=== PATIENT | male | born 1950 | race Caucasian/White ===

== ENCOUNTER 2017-11-19 16:45 | Observation (INO) | payer OTHER ==
--- NOTE | 2017-11-19 18:04 | RAD REPORT ---
EXAM DESCRIPTION: RAD - Chest Pa And Lat (2 Views) - 11/19/2017 5:41 pm CLINICAL HISTORY: Cough and congestion COMPARISON: Portable chest July 2017, CT chest May 2016 TECHNIQUE: PA and lateral views of the chest were obtained. FINDINGS: The lungs are normal volume. Patient has underlying COPD change. There is extensive fibrot ic change in the lung marti with flattened diaphragm and increased retrosternal space. Bilateral par tially mineralized apical masses are present stable to at least May 2016. These are not regarde d as acutely significant. Focally prominent interstitial and alveolar opacities are present in the anterior right lung base. Th kelle changes are new from prior imaging. Right middle lobe pneumonia is suspected. Correlation is need ed with any acute clinical findings. Heart size is normal and central vasculature is within normal limits. No pleural effusion or pneumot horax seen. No acute bony finding noted. No aortic abnormality. IMPRESSION: Patchy pneumonia changes are present in the anterior right lung base. Findings are super imposed on chronic pleural and parenchymal changes.
[2017-11-19] MEDS ORDERED: ALBUTEROL 2.5 MG/3 ML NEB SOL ONE (19:39)
[2017-11-19] MEDS ORDERED: IPRATROPIUM BROM 0.5MG/2.5ML ONE (19:40)
[2017-11-19 19:59] LABS: Absolute Lymphocytes (CBC) 2.1 K/uL (0.7-4.9); Absolute Monocytes 1.5 K/uL (0.1-1.3); Basophils % 0.8 % (0-1.3); Hematocrit 37.7 % (39.6-49.0); Lymphocytes % 16.4 % (15.3-44.8); MCH 29.9 pg (27.0-35.0); MCV 88.4 fL (80-100); MPV 8.5 fL (7.6-11.3); Monocytes % 11.5 % (3.3-12.3); RBC Red Blood Cell Count 4.26 M/uL (4.33-5.43)
[2017-11-19 20:10] LABS: Protime INR 1.21
[2017-11-19 20:12] LABS: Potassium 3.9 mEq/L (3.6-5.0)
[2017-11-19 20:19] LABS: Albumin 4.1 g/dL (3.2-5.5); Bilirubin Direct 0.2 mg/dL (0-0.2); Bilirubin Total 0.8 mg/dL (0.3-1.2); Magnesium 1.8 mg/dL (1.8-2.5); Protein, Total 7.3 g/dL (6.0-8.3)
[2017-11-19 20:22] LABS: CKMB Creatine Kinase MB 1.5 ng/ml (0.3-4.0)
[2017-11-19] MEDS ORDERED: CEFTRIAXONE/SWI 1gm 1 GM/10 ML SYR ONE (20:33)
[2017-11-19] MEDS ORDERED: AZITHROMYCIN 500 MG/250 ML BAG ONE (20:33)
--- NOTE | 2017-11-19 20:46 | RAD REPORT ---
EXAM DESCRIPTION: CT - Chest For Pe Angio - 11/19/2017 8:37 pm CLINICAL HISTORY: Chest pain, shortness of breath, COPD history COMPARISON: Chest film same date, PE study May 2016 TECHNIQUE: Dynamically enhanced 3 mm thick images of the chest were obtained during administration o f approximately 150mL Isovue 370 IV contrast. Coronal and oblique reconstruction images were generate d and reviewed. Exam utilizes a protocol to evaluate the pulmonary arterial tree. All CT scans are performed using dose optimization technique as appropriate and may include automated exposure control or mA/KV adjustment according to patient size. FINDINGS: No pulmonary emboli are identified. The aorta as imaged shows no acute or suspicious finding. No pericardial thickening or effusion. Right middle lobe airspace opacification is present at the anterior base. This is most likely a right middle lobe pneumonia. Appearance is not typical for malignant process. No other acute infiltrate or acute mass lesion. Bilateral apical masses with partial mineralization are not significantly differe nt from the 2016 study. No pleural effusion or pleural thickening. A few small calcified pleural plaq ues are present. No mediastinal or hilar suspicious masses. No chest wall masses or abnormal axillary lymphadenopathy. Asymmetry of the pectoralis musculature is noted. This is believed to be the affects of the patient' s left arm along his side than the right arm above his head. Mass or hematoma of the pectoralis muscu lature is unlikely. IMPRESSION: No pulmonary emboli identified. Right middle lobe pneumonia at the anterior base. 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
--- NOTE | 2017-11-19 21:13 | ER ---
Nurse's Notes [facility] Name: Diego Ortega Age: 67 yrs Sex: Male : 1950 Arrival Date: 11/19/2017 Time: 16:50 Bed 24 Private MD: Diagnosis: Bacterial pneumonia, not elsewhere classified Presentation: 11/19 16:54 Presenting complaint: Patient states: galina been sick for 2 weeks now, cough with phlegm, hj last night told me i was gasping for air at sleep, reports night sweats; denies fever; hx of COPD;. Transition of care: patient was not received from another setting of care. Onset of symptoms was November 19, 2017. Care prior to arrival: None. 16:54 Method Of Arrival: Ambulatory hj 16:54 Acuity: YAJAIRA 3 hj Triage Assessment: 16:58 General: Appears in no apparent distress. uncomfortable, Behavior is calm, cooperative, hj appropriate for age. Pain: Complains of pain in chest. Cardiovascular: Capillary refill < 3 seconds Patient's skin is warm and dry. Historical: - Allergies: 16:58 No Known Allergies; hj - Home Meds: 16:58 amlodipine oral [Active]; Aspirin Oral once daily [Active]; lisinopril 20 mg Oral tab hj [Active]; Plavix 75 mg Oral tab 1 tab once daily [Active]; lisinopril Oral [Active]; - PMHx: 16:58 Atrial Fib; Cirrhosis; Hepatitis; hj - Immunization history:: Adult Immunizations up to date. - Social history:: Smoking status: Patient/guardian denies using tobacco, the patient reports quitting approximately 2 years ago. - Family history:: not pertinent. - Hospitalizations: : No recent hospitalization is reported. - History obtained from: . Screenin:27 Abuse screen: Denies threats or abuse. Nutritional screening: No deficits noted. tl3 Tuberculosis screening: No symptoms or risk factors identified. Fall Risk None identified. Assessment: 16:58 Pain: Pain does not radiate. Pain began 1 day ago. hj 17:27 General: Appears in no apparent distress. slender, well groomed, well developed, well tl3 nourished, Behavior is calm, cooperative, appropriate for age. 18:29 Reassessment: Patient appears in no apparent distress at this time. No changes from tl3 previously documented assessment. Patient and/or family updated on plan of care and expected duration. Pain level reassessed. Patient is alert, oriented x 3, equal unlabored respirations, skin warm/dry/pink. family at bedside. 19:30 Reassessment: Patient appears in no apparent distress at this time. No changes from tl3 previously documented assessment. Patient and/or family updated on plan of care and expected duration. Pain level reassessed. Patient is alert, oriented x 3, equal unlabored respirations, skin warm/dry/pink. 20:15 Reassessment: Patient appears in no apparent distress at this time. No changes from tl3 previously documented assessment. Patient and/or family updated on plan of care and expected duration. Pain level reassessed. Patient is alert, oriented x 3, equal unlabored respirations, skin warm/dry/pink. 21:30 Reassessment: Patient appears in no apparent distress at this time. No changes from tl3 previously documented assessment. Patient and/or family updated on plan of care and expected duration. Pain level reassessed. Patient is alert, oriented x 3, equal unlabored respirations, skin warm/dry/pink. 21:30 Reassessment: Patient appears in no apparent distress at this time. No changes from tl3 previously documented assessment. Patient and/or family updated on plan of care and expected duration. Pain level reassessed. Patient is alert, oriented x 3, equal unlabored respirations, skin warm/dry/pink. awaiting bed asssignment. Vital Signs: 16:59 BP 154 / 78; Pulse 71; Resp 20; Temp 98.2(TE); Pulse Ox 98% on R/A; Weight 81.65 kg; Height 6 ft. 6 in. (198.12 cm); 17:27 BP 130 / 72; Pulse 63; Resp 18; Pulse Ox 99% ; tl3 18:29 Pulse 60; Resp 16; Pulse Ox 100% ; tl3 23:00 BP 109 / 61; Pulse 73; Resp 18; Pulse Ox 98% ; tl3 16:59 Body Mass Index 20.80 (81.65 kg, 198.12 cm) ED Course: 16:50 Patient arrived in ED. rg4 16:56 Triage completed. 16:58 Arm band placed on right wrist. 16:59 sander machine on. Pulse ox on. NIBP on. hj 16:59 Patient maintains SpO2 saturation greater than 95% on room air. hj 17:00 Sena Caraballo, LUÍS is Primary Nurse. tl3 17:02 Latisha Jaeger FNP is PHCP. kav 17:02 Bernabe Zapata MD is Attending Physician. kav 17:27 Patient moved to radiology. tl3 17:27 Patient has correct armband on for positive identification. Placed in gown. Bed in low tl3 position. Call light in reach. Side rails up X 1. Adult w/ patient. sander machine on. Pulse ox on. NIBP on. 17:27 No provider procedures requiring assistance completed. X-ray(s) taken. tl3 17:36 X-ray completed. Patient tolerated procedure well. Patient moved back from radiology. bb2 18:02 EKG done, by body and frame technician. reviewed by Bernabe Zapata MD. tc 18:29 sander machine on. Pulse ox on. NIBP on. tl3 18:29 Missed attempt(s): 22 gauge wrist. by tech. Bleeding controlled, band aid applied, tl3 catheter tip intact. 20:09 Inserted saline lock: 18 gauge in left antecubital area, using aseptic technique. Blood tl3 collected. 20:11 Missed attempt(s): 18 gauge in right antecubital area. Bleeding controlled, band aid bb applied, catheter tip intact. 21:03 Amylase, Serum Sent. tl3 21:03 Blood Culture Adult (2) Sent. tl3 21:03 XRAY Chest Pa And Lat (2 Views) Sent. tl3 21:03 BMP Sent. tl3 21:03 BNP Sent. tl3 21:03 CBC with Diff Sent. tl3 21:04 CPK Sent. tl3 21:04 Ckmb Sent. tl3 21:04 D-Dimer Sent. tl3 21:04 Hepatic Function Sent. tl3 21:04 Lipase Sent. tl3 21:04 Magnesium Sent. tl3 21:04 PT-INR Sent. tl3 21:04 Ptt, Activated Sent. tl3 21:04 Troponin (emerg Dept Use Only) Sent. tl3 21:10 Bernabe Zapata MD is Hospitalizing Provider. kav 21:10 Hospitalizing Provider role handed off by Bernabe Zapata MD kav 21:10 Greta Matos MD is Hospitalizing Provider. kav 22:06 CT Chest For PE Angio Sent. tl3 23:00 No apparent distress. tl3 23:00 Patient admitted, IV remains in place. tl3 23:39 Urine Dipstick--Ancillary (enter results) Sent. tl3 Administered Medications: 20:10 Drug: DuoNeb (3:1) (2.5 mg - 0.5 mg) 3 ml Route: Nebulizer; tl3 23:01 Follow up: Response: No adverse reaction tl3 20:32 Drug: Rocephin - (cefTRIAXone) 1 grams Route: IVPB; Infused Over: 5 mins; Site: left tl3 antecubital; 20:37 Follow up: IV Status: Completed infusion; IV Intake: 20ml tl3 23:01 Follow up: Response: No adverse reaction tl3 21:00 Drug: AZITHromycin 500 mg Route: IVPB; Infused Over: 1 hrs; Site: left antecubital; tl3 Delivery: Primary tubing; 22:06 Follow up: IV Status: Completed infusion; IV Intake: 250ml tl3 Intake: 20:37 IV: 20ml; Total: 20ml. tl3 22:06 IV: 250ml; Total: 270ml. tl3 Outcome: 21:12 Decision to Hospitalize by Provider. ka 23:00 Admitted to Med/surg accompanied by tech, via wheelchair, with chart, Report called to tl3 LUÍS Toney 23:00 Condition: stable 23:00 Discharge instructions given to 23:41 Patient left the ED. tl3 Signatures: Latisha Jaeger, SOIL SORT WORKER SOIL SORT WORKER Patricia Churchill RN Nancy Camacho, historic interpreter EKG Ttc Masood Dotson RN RN hj Garcia, Rubi 4 Tessa Campbell bbSena Bourgeois RN RN tl3
--- NOTE | 2017-11-19 21:13 | EDPHYS ---
Physician Documentation [facility] Name: Diego Ortega Age: 67 yrs Sex: Male : 1950 Arrival Date: 11/19/2017 Time: 16:50 Bed 24 Private MD: ED Physician Bernabe Zapata HPI: 11/19 18:40 This 67 yrs old Male presents to ER via Ambulatory with complaints of Chest kav Pain, Breathing Difficulty, Congestion. 20:31 This 67 yrs old Male presents to ER via Ambulatory with complaints of Chest kav Pain, Breathing Difficulty, Congestion. 18:40 Modifying factors: The patient symptoms are alleviated by nothing, the patient symptoms kav are aggravated by coughing. pmhx: copd. 18:42 The patient has shortness of breath at rest, with light activity. Duration: The kav symptoms are continuous. Associated signs and symptoms: Pertinent positives: productive cough. Severity of symptoms: At their worst the symptoms were moderate just prior to arrival. 19:34 The patient's shortness of breath is aggravated by coughing, is alleviated by nothing. kav The patient has not experienced similar symptoms in the past. The patient has not recently seen a physician. 19:35 Onset: The symptoms/episode began/occurred acutely, 2 week(s) ago, and became worse kav just prior to arrival, 2 day(s) ago. pmhx: copd. former smoker. quit smoking approximately 2 years ago. productive cough with rust-colored sputum. pt reports dark urine. AFib. Pacemaker. no reported pcp. 20:31 Associated signs and symptoms: Pertinent positives: chest pain, productive cough, fever.kav 20:31 c/o chest pain on deep inspiration. kav Historical: - Allergies: 16:58 No Known Allergies; hj - Home Meds: 16:58 amlodipine oral [Active]; Aspirin Oral once daily [Active]; lisinopril 20 mg Oral tab hj [Active]; Plavix 75 mg Oral tab 1 tab once daily [Active]; lisinopril Oral [Active]; - PMHx: 16:58 Atrial Fib; Cirrhosis; Hepatitis; hj - Immunization history:: Adult Immunizations up to date. - Social history:: Smoking status: Patient/guardian denies using tobacco, the patient reports quitting approximately 2 years ago. - Family history:: not pertinent. - Hospitalizations: : No recent hospitalization is reported. - History obtained from: . ROS: 18:43 Constitutional: Negative for fever, chills, and weight loss, Eyes: Negative for injury, kav pain, redness, and discharge, ENT: Negative for injury, pain, and discharge, Neck: Negative for injury, pain, and swelling, Cardiovascular: Negative for chest pain, palpitations, and edema, Abdomen/GI: Negative for abdominal pain, nausea, vomiting, diarrhea, and constipation, Back: Negative for injury and pain, : Negative for injury, bleeding, discharge, and swelling, MS/Extremity: Negative for injury and deformity, Skin: Negative for injury, rash, and discoloration, Neuro: Negative for headache, weakness, numbness, tingling, and seizure, Psych: Negative for depression, anxiety, suicide ideation, homicidal ideation, and hallucinations, Allergy/Immunology: Negative for hives, rash, and allergies, Endocrine: Negative for neck swelling, polydipsia, polyuria, polyphagia, and marked weight changes, Hematologic/Lymphatic: Negative for swollen nodes, abnormal bleeding, and unusual bruising. 19:37 Respiratory: Positive for cough, with rust-colored sputum, shortness of breath, on kav exertion. Negative for hemoptysis, orthopnea, pleurisy. Exam: 18:43 Constitutional: This is a well developed, well nourished patient who is awake, alert, kav and in no acute distress. Head/Face: Normocephalic, atraumatic. Eyes: Pupils equal round and reactive to light, extra-ocular motions intact. Lids and lashes normal. Conjunctiva and sclera are non-icteric and not injected. Cornea within normal limits. Periorbital areas with no swelling, redness, or edema. ENT: Nares patent. No nasal discharge, no septal abnormalities noted. Tympanic membranes are normal and external auditory canals are clear. Oropharynx with no redness, swelling, or masses, exudates, or evidence of obstruction, uvula midline. Mucous membranes moist. Neck: Trachea midline, no thyromegaly or masses palpated, and no cervical lymphadenopathy. Supple, full range of motion without nuchal rigidity, or vertebral point tenderness. No Meningismus. Chest/axilla: Normal chest wall appearance and motion. Nontender with no deformity. No lesions are appreciated. Cardiovascular: Regular rate and rhythm with a normal S1 and S2. No gallops, murmurs, or rubs. Normal PMI, no JVD. No pulse deficits. Abdomen/GI: Soft, non-tender, with normal bowel sounds. No distension or tympany. No guarding or rebound. No evidence of tenderness throughout. Back: No spinal tenderness. No costovertebral tenderness. Full range of motion. Skin: Warm, dry with normal turgor. Normal color with no rashes, no lesions, and no evidence of cellulitis. MS/ Extremity: Pulses equal, no cyanosis. Neurovascular intact. Full, normal range of motion. Neuro: Awake and alert, GCS 15, oriented to person, place, time, and situation. Cranial nerves II-XII grossly intact. Motor strength 5/5 in all extremities. Sensory grossly intact. Cerebellar exam normal. Normal gait. Psych: Awake, alert, with orientation to person, place and time. Behavior, mood, and affect are within normal limits. 18:43 Respiratory: mild respiratory distress is noted, Respirations: no acute changes, Breath sounds: decreased breath sounds, that are mild, are located in both bases, wheezing: expiratory 21:07 ECG was reviewed by the Attending Physician. pacemaker. afib (plavix \\T\\ asa). Afib with kav competeing junctional pacemaker, rbbb, lvh Vital Signs: 16:59 BP 154 / 78; Pulse 71; Resp 20; Temp 98.2(TE); Pulse Ox 98% on R/A; Weight 81.65 kg; hj Height 6 ft. 6 in. (198.12 cm); 17:27 BP 130 / 72; Pulse 63; Resp 18; Pulse Ox 99% ; tl3 18:29 Pulse 60; Resp 16; Pulse Ox 100% ; tl3 23:00 BP 109 / 61; Pulse 73; Resp 18; Pulse Ox 98% ; tl3 16:59 Body Mass Index 20.80 (81.65 kg, 198.12 cm) MDM: 17:02 Patient medically screened. [facility] 20:31 Data reviewed: vital signs, nurses notes, lab test result(s), EKG, radiologic studies, kav CT scan. 21:10 Physician consultation: Greta Matos MD was called at 21:10, was contacted at 21:10, [facility] regarding admission. 11/19 17:04 Order name: BMP 11/19 17:04 Order name: BNP 11/19 17:04 Order name: CBC with Diff 11/19 17:04 Order name: Ckmb 11/19 17:04 Order name: CPK 11/19 17:04 Order name: D-Dimer 11/19 17:04 Order name: Hepatic Function 11/19 17:04 Order name: Lipase 11/19 17:04 Order name: Magnesium 11/19 17:04 Order name: PT-INR 11/19 17:04 Order name: Ptt, Activated v 11/19 17:04 Order name: Troponin (emerg Dept Use Only) [facility] 11/19 17:04 Order name: Amylase, Serum [facility] 11/19 17:04 Order name: Blood Culture Adult (2) 11/19 17:04 Order name: XRAY Chest Pa And Lat (2 Views) 11/19 18:05 Order name: RAD; Complete Time: 19:02 EDNJ 11/19 19:03 Interpretation: Right lower lobe pneumonia. 11/19 20:04 Order name: CBC with Automated Diff; Complete Time: 20:14 EDMS 11/19 20:15 Interpretation: WBC 12.8; RBC 4.26; HGB 12.8; HCT 37.7; NEUT A 9.0; MNA 1.5. 11/19 20:13 Order name: Basic Metabolic Panel; Complete Time: 20:29 EDMS 11/19 20:29 Interpretation: NA 133; GLUC 131; GFR 66. 11/19 20:13 Order name: Lipase; Complete Time: 20:29 EDMS 11/19 20:29 Interpretation: Within normal limits. 11/19 20:16 Order name: Protime (+INR); Complete Time: 20:29 EDMS 11/19 20:29 Interpretation: Normal except: PT 14.3. 11/19 20:16 Order name: PTT, Activated Partial Thromb; Complete Time: 20:29 EDMS 11/19 20:29 Interpretation: Within normal limits. 11/19 20:16 Order name: D-Dimer; Complete Time: 20:29 EDMS 11/19 20:30 Interpretation: Abnormal: D-DIMER 643. 11/19 20:18 Order name: Troponin (Emerg Dept Use Only); Complete Time: 20:29 EDMS 11/19 20:30 Interpretation: Within normal limits. kav 11/19 20:19 Order name: Liver (Hepatic) Function; Complete Time: 20:29 EDMS 11/19 20:30 Interpretation: Within normal limits. kav 11/19 20:19 Order name: Creatine Phosphokinase; Complete Time: 20:29 EDMS 11/19 20:30 Interpretation: Within normal limits. ka 11/19 20:19 Order name: Magnesium; Complete Time: 20:29 EDMS 11/19 20:29 Interpretation: Within normal limits. kav 11/19 20:19 Order name: Amylase Level; Complete Time: 20:29 EDMS 11/19 20:29 Interpretation: Within normal limits. [facility] 11/19 20:22 Order name: CKMB Creatine Kinase MB; Complete Time: 20:28 EDMS 11/19 20:28 Interpretation: Within normal limits. [facility] 11/19 20:36 Order name: BNP B-Type Natriuretic Peptide; Complete Time: 21:03 EDMS 11/19 22:24 Order name: Urine Dipstick--Ancillary (enter results) [facility] 11/19 17:04 Order name: EKG; Complete Time: 17:05 [facility] 11/19 17:04 Order name: Cardiac monitoring; Complete Time: 21:05 [facility] 11/19 17:04 Order name: EKG - Nurse/Tech; Complete Time: 21:05 [facility] 11/19 17:04 Order name: IV Saline Lock; Complete Time: 21:05 [facility] 11/19 17:04 Order name: Labs collected and sent; Complete Time: 21:05 [facility] 11/19 17:04 Order name: O2 Per Protocol; Complete Time: 22:07 [facility] 11/19 17:04 Order name: O2 Sat Monitoring; Complete Time: 22:07 [facility] 11/19 17:04 Order name: Urine Dipstick-Ancillary (obtain specimen); Complete Time: 22:07 [facility] 11/19 20:16 Order name: CT Chest For PE Angio [facility] 11/19 20:47 Order name: CT; Complete Time: 21:01 EDMS 11/19 21:02 Interpretation: Right middle lobe pneumonia. kav Administered Medications: 20:10 Drug: DuoNeb (3:1) (2.5 mg - 0.5 mg) 3 ml Route: Nebulizer; tl3 23:01 Follow up: Response: No adverse reaction tl3 20:32 Drug: Rocephin - (cefTRIAXone) 1 grams Route: IVPB; Infused Over: 5 mins; Site: left tl3 antecubital; 20:37 Follow up: IV Status: Completed infusion; IV Intake: 20ml tl3 23:01 Follow up: Response: No adverse reaction tl3 21:00 Drug: AZITHromycin 500 mg Route: IVPB; Infused Over: 1 hrs; Site: left antecubital; tl3 Delivery: Primary tubing; 22:06 Follow up: IV Status: Completed infusion; IV Intake: 250ml tl3 Disposition: 11/20 14:57 Co-signature as Attending Physician, Bernabe Zapata MD I agree with the assessment and juvenal plan of care. Disposition: 11/19/17 21:12 Hospitalization ordered by Greta Matos for Inpatient Admission. Preliminary diagnosis is Bacterial pneumonia, not elsewhere classified. - Bed requested for Telemetry/MedSurg (Inpatient). - Status is Inpatient Admission. tl3 - Condition is Fair. - Problem is new. - Symptoms have improved. UTI on Admission? No Signatures: Dispatcher [employer] EDMS Neeta Kauffman RN RN kl Anderson, Corey, MD MD cha Vern, Katherine, DRIVABILITY TECHNICIAN DRIVABILITY TECHNICIAN Masood Harrison RN RN hj Lowrey, Tammy, RN RN tl3 Corrections: (The following items were deleted from the chart) 11/19 19:37 18:40 Onset: The symptoms/episode began/occurred acutely, 3 day(s) ago, kav kav 19:38 18:43 Respiratory: Positive for cough, "sounds productive", shortness of breath, on kav exertion. wheezing, expiratory, of the right middle lobe, left lower lobe, right lower lobe, left posterior lower lobe, right posterior middle lobe and right posterior lower lobe, kav 20:15 20:15 Normal except: WBC 12.8; RBC 4.26; HGB 12.8; HCT 37.7; NEUT A 9.0. kav kav 20:15 20:15 Normal except: WBC 12.8; RBC 4.26; HGB 12.8; HCT 37.7; NEUT A 9.0; MNA 1.5. kav kav 20:29 20:14 Normal except: NA 133; GLUC 131. kav kav 20:30 20:29 Abnormal. kav kav 20: 18:40 Associated signs and symptoms: Pertinent positives: congestion, cough, kav kav
--- NOTE | 2017-11-19 21:53 | P.HP ---
Certification for Inpatient Patient admitted to: Inpatient With expected LOS: >2 Midnights Practitioner: I am a practitioner with admitting privileges, knowledge of patient current condition, hospital course, and medical plan of care. Services: Services provided to patient in accordance with Admission requirements found in Title 42 Section 412.3 of the Code of Federal Regulations Patient History Date of Service: 11/19/17 Reason for admission: COPD exacerbation History of Present Illness: Mr Ortega is a 67 years old male with history of COPD, HTN, A.Fib s/p pacemaker placement, anticoagulated with eliquis, liver cirrhosis, who start about 2 weeks ago with more productive cough than usual. He states that de color of his sputum changed from clear to yellowish/brounish. His symptoms were getting progressively worse. 2 days ago, the patient start with SOB, and had chills and diaphoresis at night. Today he came to ED since he feels even worse. At arrival the patient was afebrile, O2 Sat 98% on RA, Lab work remarkable for leukocytosis, 12.8K, D-dimer 643, CTA chest shows no PE but right middle lobe pneumonia at the anterior base. 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 Allergies morphine Allergy (Unverified 07/20/17 19:00) Unknown ondansetron Allergy (Verified 05/20/16 23:09) Itching/Hives/Rash No Known Drug Aller Allergy (Uncoded 07/22/17 12:08) Unknown Home Medications: Chlorthalidone [Hygroton 25mg Tab*] 25 mg PO DAILY 05/20/16 Lisinopril [Prinivil*] 20 mg PO DAILY 05/20/16 Fluticasone/Vilanterol [Breo Ellipta 100-25 Mcg INH] 1 each IH DAILY #1 aer.pow.ba 05/22/16 Prednisone [Deltasone*] 10 mg PO BID #20 tab 05/22/16 Rivaroxaban [Xarelto] 20 mg PO DAILY #30 tab 05/22/16 Tramadol HCl [Ultram] 50 mg PO TID PRN #30 tablet 05/22/16 - Past Medical/Surgical History Diabetic: No -: A-fib -: Cirrhosis -: Hep C -: COPD -: Pacemaker - Family History Mother -: Heart disease Father -: Cancer Notes: stomach CA - Social History Smoking Status: Former smoker Alcohol use: No CD- Drugs: No Caffeine use: Yes Place of Residence: Home Review of Systems 10-point ROS is otherwise unremarkable Physical Examination - Physical Exam General: Alert, In no apparent distress HEENT: Atraumatic, PERRLA, Mucous membr. moist/pink, EOMI, Sclerae nonicteric Neck: Supple, 2+ carotid pulse no bruit, No LAD, Without JVD or thyroid abnormality Respiratory: Normal air movement, Expiratory wheezes (scattered expiratory wheezing bilateral) Cardiovascular: Regular rate/rhythm, Normal S1 S2 Gastrointestinal: Normal bowel sounds, No tenderness Musculoskeletal: No tenderness Integumentary: No rashes Neurological: Normal speech, Normal strength at 5/5 x4 extr, Normal tone, Normal affect Lymphatics: No axilla or inguinal lymphadenopathy - Studies Laboratory Data (last 24 hrs) 11/19/17 19:40: PT 14.3 H, INR 1.21, APTT 28.5 11/19/17 19:40: WBC 12.8 H, Hgb 12.8 L, Hct 37.7 L, Plt Count 162 11/19/17 19:40: B-Natriuretic Peptide 326 H 11/19/17 19:40: Sodium 133 L, Potassium 3.9, BUN 19, Creatinine 1.11, Glucose 131 H, Magnesium 1.8, Total Bilirubin 0.8, AST 16, ALT 12, Alkaline Phosphatase 55, Amylase 61, Lipase 51 Assessment and Plan - Problems (Diagnosis) (1) COPD exacerbation Current Visit: Yes Status: Acute (2) Atrial fibrillation Onset Date: 05/21/16 Current Visit: No Status: Chronic Qualifiers: Atrial fibrillation type: chronic Qualified Code(s): I48.2 - Chronic atrial fibrillation (3) Hepatitis C Current Visit: No Status: Chronic Qualifiers: Viral hepatitis chronicity: chronic Hepatic coma status: without hepatic coma Qualified Code(s): B18.2 - Chronic viral hepatitis C (4) History of pacemaker Current Visit: No Status: Chronic (5) Pneumonia Current Visit: Yes Status: Acute Qualifiers: Pneumonia type: due to unspecified organism Laterality: right Lung location: middle lobe of lung Qualified Code(s): J18.1 - Lobar pneumonia, unspecified organism - Plan Mr Ortega will be admitted to the hospital due to COPD exacerbation secondary to right middle lobe pneumonia. Blood and sputum culture in process. Will continue with empiric IV Rocephin and Azithromycin, breathing treatments, IV steroids. Will consult Dr Pope for evaluation and recommendations. - Advance Directives Does patient have a Living Will: No Does patient have a Durable POA for Healthcare: No - Code Status/Comfort Care Code Status Assessed: Yes Code Status: Full Code
[2017-11-19] MEDS ORDERED: ACETAMINOPHEN 500 MG TAB PO PRN (22:57)
[2017-11-19] MEDS ORDERED: TRAMADOL HCL 50 MG TAB PO PRN (22:57)
[2017-11-19] MEDS ORDERED: ALBUTEROL 2.5 MG/3 ML NEB SOL NEB PRN (22:57)
[2017-11-19] MEDS ORDERED: IPRATROPIUM BROM 0.5MG/2.5ML NEB PRN (22:57)
[2017-11-19] MEDS ORDERED: ONDANSETRON 4 MG/2 ML VIAL IV PRN (22:57)
[2017-11-19] MEDS ORDERED: AZITHROMYCIN IV 500 MG in NA CHLORIDE 0.9% 250 ML IVPB SCH (23:00)
[2017-11-20] MEDS: NA CHLORIDE 0.9% 1,000 ML IV SCH ×2 (00:54→09:53)
[2017-11-20] MEDS: METHYLPREDNISOLONE 40 MG INJ IV SCH ×2 (00:54→09:53)
[2017-11-20 01:40] VITALS: BMI 21.9
[2017-11-20 05:09] VITALS: O2SAT 96
[2017-11-20 05:38] LABS: Urine Appearance CLEAR; Urine Bilirubin NEGATIVE (NEG); Urine Blood NEGATIVE (NEG); Urine Color YELLOW; Urine Glucose NEGATIVE (NEG); Urine Protein NEGATIVE (NEG); Urine Specific Gravity >=1.030 (1.005-1.030); Urine Urobilinogen 0.2 mg/dL (0.2-1.0)
[2017-11-20 05:39] LABS: Urine Microscopic Reflex ORDER UMIC
[2017-11-20 06:03] LABS: Urine Bacteria <20 /HPF (NONE SEEN); Urine Culture Reflex Order NOT NEEDED; Urine RBC <5 /HPF (NONE SEEN)
--- NOTE | 2017-11-20 07:58 | EKG ---
Test Date: 2017-11-19 Test Time: 17:46:42 Material Coordinator: RAYO MEASUREMENT RESULTS: Intervals: Rate: 65 ND: QRSD: 162 QT: 438 QTc: 455 [place]: P: ND: QRS: -79 T: 85 INTERPRETIVE STATEMENTS: Rhythm consistent with VVI pacing underlying atrial fibrillation with no AV conduction Abnormal ECG Compared to ECG 07/22/2017 09:20:11 no significant change from previous ECG Electronically Signed On 11-20-17 07:58:19 CDT by Enio Mcclendon
[2017-11-20] MEDS ORDERED: PNEUMOCOCCAL VACCINE 0.5 ML IMVAC ONE (08:00)
[2017-11-20] MEDS ORDERED: CEFTRIAXONE 1 GM/NS 50 ML 1 GM/50 ML BAG IV SCH (09:00)
[2017-11-20] MEDS ORDERED: levoFLOXacin 500 MG TAB PO SCH (09:00)
[2017-11-20] MEDS ORDERED: RIVAROXABAN 10 MG TABLET PO SCH (09:00)
--- NOTE | 2017-11-20 10:00 | P.CNS ---
Date of Consult: 11/20/17 Reason for Consult: COPD exacerbation Chief Complaint: COPD exacerbation History of Present Illness: Patient is 67 years of age admitted with a 2 week history of productive cough became worse over the past 4-5 days has some chest discomfort yellowish-green cough today he had some hemoptysis also complained of night sweats uses Symbicort on a p.r.n. basis he quit smoking admitted with a diagnosis of exacerbation of COPD possible pneumonia doing somewhat better Allergies No Known Allergies Allergy (Verified 11/19/17 23:50) Home Medications: Chlorthalidone [Hygroton 25mg Tab*] 25 mg PO DAILY 05/20/16 Lisinopril [Prinivil*] 20 mg PO DAILY 05/20/16 Prednisone [Deltasone*] 10 mg PO BID #20 tab 05/22/16 Tramadol HCl [Ultram] 50 mg PO TID PRN #30 tablet 05/22/16 Amlodipine [Norvasc*] 5 mg PO DAILY 11/20/17 Budesonide/Formoterol Fumarate [Symbicort 160-4.5 Mcg Inhaler] 2 puff IH BID Clopidogrel Bisulfate [Plavix*] 1 tab PO BEDTIME 11/20/17 - Past Medical/Surgical History Diabetic: No -: A-fib -: Cirrhosis -: Hep C -: COPD -: Pacemaker -: left wrist hand sx -: cardiac cath - Family History Mother Medical History: Heart disease Father Medical History: Cancer Notes: stomach CA - Social History Smoking Status: Former smoker Alcohol use: No CD- Drugs: No Caffeine use: Yes Place of Residence: Home Review of Systems General: Weakness Respiratory: Cough, Shortness of Breath Cardiovascular: Chest Pain Physical Examination Temp Pulse Resp BP Pulse Ox 97.6 F 62 16 130/60 98 11/20/17 04:00 11/20/17 04:00 11/20/17 04:00 11/20/17 04:00 11/20/17 04:00 General: Alert, Oriented x3 HEENT: Atraumatic Neck: Supple Respiratory: Expiratory wheezes, Rhonchi/gurgles Cardiovascular: No edema, Normal S1 S2 Gastrointestinal: Normal bowel sounds, Soft and benign Laboratory Data (last 24 hrs) 11/19/17 19:40: PT 14.3 H, INR 1.21, APTT 28.5 11/19/17 19:40: WBC 12.8 H, Hgb 12.8 L, Hct 37.7 L, Plt Count 162 11/19/17 19:40: B-Natriuretic Peptide 326 H 11/19/17 19:40: Sodium 133 L, Potassium 3.9, BUN 19, Creatinine 1.11, Glucose 131 H, Magnesium 1.8, Total Bilirubin 0.8, AST 16, ALT 12, Alkaline Phosphatase 55, Amylase 61, Lipase 51 - Problems (1) COPD exacerbation Current Visit: Yes Status: Acute Plan: Patient is 67 years of age with a history of COPD admitted with cough congestion for the past 2 weeks minimal infiltrated changes in the right middle lobe chronic calcification in the upper lobes minimally elevated white count he can be discharged home on prednisone 10 mg twice a day for 10 days in addition to levofloxacin of note he had minimal hemoptysis and he needs to follow up in my office in 2 weeks no mass visible no evidence of pulmonary emboli room-air sat is satisfactory patient is on Xarelto has AFib
[2017-11-20 10:53] VITALS: BP 116/63; TEMP 97.4
--- NOTE | 2017-11-20 16:00 | P.SSS ---
Patient History Date of Service: 11/20/17 Primary Care Provider: None Reason for admission: COPD exacerbation History of Present Illness: See HPI Allergies No Known Allergies Allergy (Verified 11/19/17 23:50) Home Medications: Chlorthalidone [Hygroton 25mg Tab*] 25 mg PO DAILY 05/20/16 Lisinopril [Prinivil*] 20 mg PO DAILY 05/20/16 Tramadol HCl [Ultram] 50 mg PO TID PRN #30 tablet 05/22/16 Amlodipine [Norvasc*] 5 mg PO DAILY 11/20/17 Budesonide/Formoterol Fumarate [Symbicort 160-4.5 Mcg Inhaler] 2 puff IH BID Clopidogrel Bisulfate [Plavix*] 1 tab PO BEDTIME 11/20/17 Doxycycline Hyclate 100 mg PO Q8H #42 capsule 11/20/17 Prednisone [Deltasone*] 10 mg PO BID #20 tab 11/20/17 - Past Medical/Surgical History Has patient received pneumonia vaccine in the past: No Diabetic: No -: A-fib -: Cirrhosis -: Hep C -: COPD -: Pacemaker -: left wrist hand sx -: cardiac cath - Family History Mother -: Heart disease Father -: Cancer Notes: stomach CA - Social History Smoking Status: Former smoker Alcohol use: No CD- Drugs: No Caffeine use: Yes Place of Residence: Home Review of Systems General: As per HPI Physical Examination - Vital Signs Temperature: 97.4 F Blood Pressure: 116/63 Pulse: 77 Respirations: 16 Pulse Ox (%): 95 - Physical Exam General: Alert, In no apparent distress, Oriented x3 HEENT: Atraumatic, PERRLA, Mucous membr. moist/pink, EOMI, Sclerae nonicteric Neck: Supple, 2+ carotid pulse no bruit, No LAD, Without JVD or thyroid abnormality Respiratory: Clear to auscultation bilaterally, Normal air movement Cardiovascular: Regular rate/rhythm, Normal S1 S2 Gastrointestinal: Normal bowel sounds, No tenderness Musculoskeletal: No tenderness Integumentary: No rashes Neurological: Normal gait, Normal speech, Normal strength at 5/5 x4 extr, Normal tone, Normal affect Lymphatics: No axilla or inguinal lymphadenopathy - Studies Laboratory Data (last 24 hrs) 11/19/17 19:40: PT 14.3 H, INR 1.21, APTT 28.5 11/19/17 19:40: WBC 12.8 H, Hgb 12.8 L, Hct 37.7 L, Plt Count 162 11/19/17 19:40: B-Natriuretic Peptide 326 H 11/19/17 19:40: Sodium 133 L, Potassium 3.9, BUN 19, Creatinine 1.11, Glucose 131 H, Magnesium 1.8, Total Bilirubin 0.8, AST 16, ALT 12, Alkaline Phosphatase 55, Amylase 61, Lipase 51 Microbiology Data (last 24 hrs): 11/19/17 19:40 Blood - Other Anaerobic Blood Culture - Final - Diagnosis (Problem(s)) (1) COPD exacerbation Onset Date: 11/20/17 Status: Acute (2) Pneumonia Onset Date: 11/20/17 Status: Acute Plan: Middle Lobe PNA. -PO levaquin now. -Pulmonology Consulted. Appreciated Reccs. -DC home now. Qualifiers: Pneumonia type: due to unspecified organism Laterality: right Lung location: middle lobe of lung Qualified Code(s): J18.1 - Lobar pneumonia, unspecified organism (3) Atrial fibrillation Onset Date: 05/21/16 Status: Chronic Qualifiers: Atrial fibrillation type: chronic Qualified Code(s): I48.2 - Chronic atrial fibrillation (4) History of pacemaker Status: Chronic - Disposition Disposition: ROUTINE DISCHARGE Condition: GOOD Patient Discharge Instructions: Please f/u with Dr Carter in the clinic in 2 week. New medication. Doxycycline 100mg q8h. Prednisone Diet: Regular Activity: Ad sergio
[2017-11-20] MEDS ORDERED: AZITHROMYCIN IV 500 MG in NA CHLORIDE 0.9% 250 ML IVPB SCH (20:00)
[2017-11-20] MEDS ORDERED: predniSONE 10 MG TAB PO SCH (21:00)
[2017-11-20] MEDS ORDERED: CLOPIDOGREL 75 MG TABLET PO SCH (21:00)
[2017-11-20] MEDS ORDERED: CEFTRIAXONE/SWI 1gm 1 GM/10 ML SYR IV SCH (21:00)
[2017-11-21] MEDS ORDERED: AMLODIPINE 5 MG TAB PO SCH (09:00)
[2017-11-21] MEDS ORDERED: LISINOPRIL 20 MG TAB PO SCH (09:00)
[2017-11-21] MEDS ORDERED: CHLORTHALIDONE 25 MG TAB PO SCH (09:00)
[2017-11-26 11:01] LABS: Urine Blood NEGATIVE (NEG); Urine Glucose NEGATIVE (NEG); Urine Protein NEGATIVE (NEG); Urine pH 6.5 (5.0-7.0)
== END 2017-11-20 12:28 | disposition home or self-care (01) ==
LOC: ER 16:45 → INTOOBSV 22:08 → ERHOLD 22:08 → 2ND 22:48
PROVIDERS: ADMIT Internal Medicine; ATTEND Internal Medicine
DX: J44.0 Chronic obstructive pulmonary disease with (acute) lower respiratory infection (principal); J18.9 Pneumonia, unspecified organism; J44.1 Chronic obstructive pulmonary disease with (acute) exacerbation; I48.91 Unspecified atrial fibrillation; I10 Essential (primary) hypertension; Z95.0 Presence of cardiac pacemaker; Z87.891 Personal history of nicotine dependence
CPT/HCPCS: 36415; 71046; 71275; 80048; 80076; 81003; 81015; 82150; 82550; 82553; 83690; 83735; 83880; 84484; 85025; 85379; 85610; 85730; 87040; 93005; 94640; 94760; 96365; 96375; 99285; G0378; J0456; J0696; J2920; J7030; Q9967

== ENCOUNTER 2019-02-09 17:56 | Emergency (ER) | payer OTHER ==
[2019-02-09] MEDS ORDERED: CLINDAMYCIN HCL 150 MG CAP ONE (18:55)
[2019-02-09] MEDS ORDERED: FENTANYL CITR 100 MCG/2 ML ONE (18:55)
--- NOTE | 2019-02-09 19:28 | RAD REPORT ---
EXAM DESCRIPTION: US - UPPER EXTREMITY VENOUS UNILATE - 02/09/2019 7:09 pm CLINICAL HISTORY: Left arm pain and swelling COMPARISON: None. TECHNIQUE: Real-time sonographic evaluation of the left upper extremity deep venous systems was perf ormed. FINDINGS: Normal compressibility, flow augmentation, phasic flow and spontaneous flow are identified in the left upper extremity deep venous system. No intraluminal filling defects seen. Internal jugul ar and subclavian veins are normal as well. In the area of the soft tissue wound posterior left arm, no abscess or drainable fluid collections se en. Tissues are edematous. IMPRESSION: No DVT in the left upper extremity. Posterior arm shows edema change but no abscess or drainable fluid collection identifiable.
--- NOTE | 2019-02-09 19:29 | RAD REPORT ---
EXAM DESCRIPTION: RAD - Forearm Left - 02/09/2019 7:00 pm CLINICAL HISTORY: Arm pain, abscess, soft tissue swelling COMPARISON: July 2017 FINDINGS: No acute fracture identified. There is hardware in place from prior distal radius repair. There is no dislocation or periosteal reaction noted. No acute bone or joint process seen. No air or foreign body in the soft tissues. IMPRESSION: No acute bone or joint finding. No air or foreign body in the soft tissues.
--- NOTE | 2019-02-09 19:34 | ER ---
Nurse's Notes [facility] Name: Diego Ortega Age: 68 yrs Sex: Male : 1950 Arrival Date: 02/09/2019 Time: 17:59 Bed 30 Private MD: None, None Diagnosis: Cellulitis of left upper limb Presentation: 02/09 17:59 Presenting complaint: Patient states: 3 days a ago, i felt like a small abscess on my L hj fore arm; went to see my PCP, was Rx with doxycycline and i became sick, been throwing up; reports swelling on the affected area with a red line on it;. Transition of care: patient was not received from another setting of care. Onset of symptoms was February 09, 2019. Risk Assessment: Do you want to hurt yourself or someone else? Patient reports no desire to harm self or others. Initial Sepsis Screen: Does the patient meet any 2 criteria? No. Patient's initial sepsis screen is negative. Does the patient have a suspected source of infection? No. Patient's initial sepsis screen is negative. Care prior to arrival: None. 17:59 Method Of Arrival: Ambulatory 17:59 Acuity: YAJAIRA 3 hj Historical: - Allergies: 18:03 No Known Allergies; hj - PMHx: 18:03 Atrial Fib; Cirrhosis; Hepatitis; hj - PSHx: 18:03 R wrist surgery; pacemaker; watch man procedure; hj - Immunization history:: Adult Immunizations up to date. - Social history:: Smoking status: unknown. - Ebola Screening: : No symptoms or risks identified at this time. Screenin:23 Abuse screen: Denies threats or abuse. Denies injuries from another. Nutritional rv screening: No deficits noted. Tuberculosis screening: No symptoms or risk factors identified. Fall Risk None identified. Assessment: 18:21 General: Appears in no apparent distress. comfortable, Behavior is calm, cooperative. rv Pain: Complains of pain in left arm. Neuro: Level of Consciousness is awake, alert, obeys commands, Oriented to person, place, time, situation. Cardiovascular: Patient's skin is warm and dry. Respiratory: Airway is patent. GI: No signs and/or symptoms were reported involving the gastrointestinal system. : No signs and/or symptoms were reported regarding the genitourinary system. EENT: No signs and/or symptoms were reported regarding the EENT system. Derm: Abscess located on palmar aspect of left forearm. Musculoskeletal: Swelling present in left arm. Vital Signs: 18:03 BP 148 / 94; Pulse 72; Resp 18; Temp 98.8(O); Pulse Ox 98% on R/A; Weight 90.72 kg; hj Height 6 ft. 5 in. (195.58 cm); Pain 7/10; 20:07 BP 136 / 86; Pulse 80; Resp 18; Temp 98.4; Pulse Ox 100% ; rv 18:03 Body Mass Index 23.72 (90.72 kg, 195.58 cm) ED Course: 17:59 Patient arrived in ED. mr 17:59 None, None is Private Physician. mr 18:01 Triage completed. hj 18:03 Emeli Rangel [facility]-C [facility]. snw 18:03 Brett Tolliver MD is Attending Physician. snw 18:03 Arm band placed on right wrist. hj 18:07 Gregg Evans, LUÍS is Primary Nurse. rv 18:23 Patient has correct armband on for positive identification. Bed in low position. Call rv light in reach. Side rails up X 1. Adult w/ patient. Pulse ox on. NIBP on. 19:00 Forearm Left XRAY In Process Unspecified. EDMS 19:09 UPPER EXTREMITY VENOUS UNILATE In Process Unspecified. EDMS 20:08 No provider procedures requiring assistance completed. Wound care: to open abscess rv located on left arm was cleaned with Hibiclens, irrigated with normal saline, dressed with 4X4s, Patient tolerated well. 20:10 Patient did not have IV access during this emergency room visit. rv Administered Medications: 18:43 Drug: Clindamycin 300 mg Route: PO; rv 20:08 Follow up: Response: No adverse reaction rv 18:48 Drug: fentaNYL (PF) 50 mcg Route: IM; Site: right deltoid; rv 20:08 Follow up: Response: Marked relief of symptoms; Pain is decreased rv Outcome: 19:33 Discharge ordered by . snw 20:09 Discharged to home ambulatory. rv 20:09 Condition: good 20:09 Discharge instructions given to patient, Instructed on discharge instructions, follow up and referral plans. medication usage, Demonstrated understanding of instructions, follow-up care, medications, wound care, Prescriptions given X 2. 20:10 Patient left the ED. rv Addendum: 02/14/2019 08:59 Addendum: Culture Results: Positive wound culture. Bacteria is resistant to, has s s intermediate sensitivity, or is not tested against prescribed antibiotics. Report given to THOMAS for further evaluation and then to grassland conservationist for follow up with patient. Phone call Attempt #1 No answer, left VM. culture report given to management to send certified letter to address on file. Signatures: Dispatcher [employer] EDMS Emeli Rangel, ORACLE APPLICATIONS ANALYST-C ORACLE APPLICATIONS ANALYST-Csnw Zeny Ortiz Ira Burns, RN RN Masood Dotson, RN RN Gregg Evans, RN RN rv Corrections: (The following items were deleted from the chart) 02/09 18:04 18:03 Pulse 72bpm; Resp 18bpm; Pulse Ox 98% RA; Temp 98.8F Oral; 90.72 kg; Height 6 ft. hj 5 in.; BMI: 23.7; Pain 7/10; hj 18:25 18:21 Derm: Skin is intact, rv rv 18:25 18:21 Musculoskeletal: No signs and/or symptoms reported regarding the musculoskeletal rv system. rv
--- NOTE | 2019-02-09 19:34 | EDPHYS ---
Physician Documentation [facility] Name: Diego Ortega Age: 68 yrs Sex: Male : 1950 Arrival Date: 02/09/2019 Time: 17:59 Bed 30 Private MD: None, None ED Physician Brett Tolliver HPI: 02/09 23:46 This 68 yrs old Male presents to ER via Ambulatory with complaints of Abscess.snw 23:46 The patient presents with an abscess of the palmar aspect of left forearm, The patient snw presents with cellulitis of the palmar aspect of left forearm, the patient presents with a swollen area of the palmar aspect of left forearm. Description: erythematous, warm. Onset: The symptoms/episode began/occurred suddenly, 5 day(s) ago, and became worse yesterday. Associated signs and symptoms: Pertinent positives: erythema, swelling, warmth . Modifying factors: the symptoms are alleviated by nothing. Severity of symptoms: At their worst the symptoms were moderate. The patient has been recently seen by a physician: with similar presenting complaints, was given a prescription for pain medications, was given a prescription for antibiotics, pt states he is unable to tolerate Doxycycline no matter how much he eats with the medication. Historical: - Allergies: 18:03 No Known Allergies; hj - PMHx: 18:03 Atrial Fib; Cirrhosis; Hepatitis; hj - PSHx: 18:03 R wrist surgery; pacemaker; watch man procedure; hj - Immunization history:: Adult Immunizations up to date. - Social history:: Smoking status: unknown. - Ebola Screening: : No symptoms or risks identified at this time. ROS: 23:39 Constitutional: Negative for fever, chills, and weight loss, Eyes: Negative for injury, snw pain, redness, and discharge, ENT: Negative for injury, pain, and discharge, Neck: Negative for injury, pain, and swelling, Cardiovascular: Negative for chest pain, palpitations, and edema, Respiratory: Negative for shortness of breath, cough, wheezing, and pleuritic chest pain, Abdomen/GI: Negative for abdominal pain, nausea, vomiting, diarrhea, and constipation, Back: Negative for injury and pain, : Negative for injury, bleeding, discharge, and swelling, MS/Extremity: Negative for injury and deformity, Neuro: Negative for headache, weakness, numbness, tingling, and seizure, Psych: Negative for depression, anxiety, suicide ideation, homicidal ideation, and hallucinations. 23:39 Skin: Positive for erythema, swelling, of the palmar aspect of left forearm. Exam: 23:34 Constitutional: This is a well developed, well nourished patient who is awake, alert, snw and in no acute distress. Head/Face: Normocephalic, atraumatic. Eyes: Pupils equal round and reactive to light, extra-ocular motions intact. Lids and lashes normal. Conjunctiva and sclera are non-icteric and not injected. Cornea within normal limits. Periorbital areas with no swelling, redness, or edema. ENT: Nares patent. No nasal discharge, no septal abnormalities noted. Tympanic membranes are normal and external auditory canals are clear. Oropharynx with no redness, swelling, or masses, exudates, or evidence of obstruction, uvula midline. Mucous membranes moist. Neck: Trachea midline, no thyromegaly or masses palpated, and no cervical lymphadenopathy. Supple, full range of motion without nuchal rigidity, or vertebral point tenderness. No Meningismus. Chest/axilla: Normal chest wall appearance and motion. Nontender with no deformity. No lesions are appreciated. Cardiovascular: Regular rate and rhythm with a normal S1 and S2. No gallops, murmurs, or rubs. Normal PMI, no JVD. No pulse deficits. Respiratory: Lungs have equal breath sounds bilaterally, clear to auscultation and percussion. No rales, rhonchi or wheezes noted. No increased work of breathing, no retractions or nasal flaring. Abdomen/GI: Soft, non-tender, with normal bowel sounds. No distension or tympany. No guarding or rebound. No evidence of tenderness throughout. Back: No spinal tenderness. No costovertebral tenderness. Full range of motion. Skin: Warm, dry with normal turgor. Normal color with no rashes, no lesions, and no evidence of cellulitis except to left forearm. Left dorsal hand with healing abrasions, wrist with mild edema, back aspect of forearm with erythema surrounding a papule with mild/minimal abscess. Pt has been using warm compresses. Needle used to open papule, expressed exudate from area sent to lab for culture and sensitivity. MS/ Extremity: Pulses equal, no cyanosis. Neurovascular intact. Full, normal range of motion. Neuro: Awake and alert, GCS 15, oriented to person, place, time, and situation. Cranial nerves II-XII grossly intact. Motor strength 5/5 in all extremities. Sensory grossly intact. Cerebellar exam normal. Normal gait. Psych: Awake, alert, with orientation to person, place and time. Behavior, mood, and affect are within normal limits. Vital Signs: 18:03 BP 148 / 94; Pulse 72; Resp 18; Temp 98.8(O); Pulse Ox 98% on R/A; Weight 90.72 kg; hj Height 6 ft. 5 in. (195.58 cm); Pain 7/10; 20:07 BP 136 / 86; Pulse 80; Resp 18; Temp 98.4; Pulse Ox 100% ; rv 18:03 Body Mass Index 23.72 (90.72 kg, 195.58 cm) hj MDM: 18:21 Patient medically screened. snw 23:38 Data reviewed: vital signs, nurses notes. Data interpreted: Pulse oximetry: on room air snw is 100 %. Interpretation: normal. Counseling: I had a detailed discussion with the patient and/or guardian regarding: the historical points, exam findings, and any diagnostic results supporting the discharge/admit diagnosis, the presence of at least one elevated blood pressure reading (>120/80) during this emergency department visit, radiology results, the need for outpatient follow up, to return to the emergency department if symptoms worsen or persist or if there are any questions or concerns that arise at home. Response to treatment: the patient's symptoms have mildly improved after treatment. 23:44 Special discussion: I discussed in detail with the patient the higher chance of wound snw infection based on his presenting history. Based on the history and exam findings, there is no indication for further emergent testing or inpatient evaluation. I discussed with the patient/guardian the need to see the primary care provider for further evaluation of the symptoms. pt encouraged to return to ED if area not improving after 48 hours on this antibiotic. Pt with failed doxycycline x 48 hours. + severe adverse effects so abx changed to clindamycin. x-ray and US of left upper extremity negative.. 02/09 18:23 Order name: Wound Culture snw 02/09 18:23 Order name: Forearm Left XRAY; Complete Time: 19:34 snw 02/09 18:26 Order name: UPPER EXTREMITY VENOUS UNILATE; Complete Time: 19:34 EDMS 02/09 18:23 Order name: Wound Care; Complete Time: 18:46 snw 02/09 18:23 Order name: Wound dressing; Complete Time: 18:46 snw 02/09 18:32 Order name: PO challenge; Complete Time: 18:46 snw Administered Medications: 18:43 Drug: Clindamycin 300 mg Route: PO; rv 20:08 Follow up: Response: No adverse reaction rv 18:48 Drug: fentaNYL (PF) 50 mcg Route: IM; Site: right deltoid; rv 20:08 Follow up: Response: Marked relief of symptoms; Pain is decreased rv Disposition: 02/09/19 19:33 Discharged to Home. Impression: Cellulitis of left upper limb. - Condition is Stable. - Discharge Instructions: Cellulitis, Adult, Wound Infection, Heat Therapy. - Prescriptions for Clindamycin HCl 300 mg Oral Capsule - take 1 capsule by ORAL route every 6 hours for 10 days; 40 capsule. Diclofenac Sodium 75 mg Oral Tablet Sustained Release - take 1 tablet by ORAL route 2 times per day; 30 tablet. - Medication Reconciliation Form, Thank You Letter, Antibiotic Education, Prescription Opioid Use form. - Follow up: Private Physician; When: 2 - 3 days; Reason: Recheck today's complaints, Continuance of care, Re-evaluation by your physician. Follow up: Emergency Department; When: As needed; Reason: Worsening of condition. - Notes: Please stop Doxycycline Signatures: Dispatcher [employer] EDKY Emeli Rangel, VP TRANSPORTATION-C VP TRANSPORTATION-Csnw Masood Dotson, LUÍS STALEY Gregg Evans RN RN rv Corrections: (The following items were deleted from the chart) 18:26 18:24 Extremity Venous Uni Ltd+US.RAD.BRZ ordered. [facility] EDKY 20:10 19:33 02/09/2019 19:33 Discharged to Home. Impression: Cellulitis of left upper limb. rv Condition is Stable. Forms are Medication Reconciliation Form, Thank You Letter, Antibiotic Education, Prescription Opioid Use. Follow up: Private Physician; When: 2 - 3 days; Reason: Recheck today's complaints, Continuance of care, Re-evaluation by your physician. Follow up: Emergency Department; When: As needed; Reason: Worsening of condition. snw 23:42 23:34 Constitutional: This is a well developed, well nourished patient who is awake, snw alert, and in no acute distress. Head/Face: Normocephalic, atraumatic. Eyes: Pupils equal round and reactive to light, extra-ocular motions intact. Lids and lashes normal. Conjunctiva and sclera are non-icteric and not injected. Cornea within normal limits. Periorbital areas with no swelling, redness, or edema. ENT: Nares patent. No nasal discharge, no septal abnormalities noted. Tympanic membranes are normal and external auditory canals are clear. Oropharynx with no redness, swelling, or masses, exudates, or evidence of obstruction, uvula midline. Mucous membranes moist. Neck: Trachea midline, no thyromegaly or masses palpated, and no cervical lymphadenopathy. Supple, full range of motion without nuchal rigidity, or vertebral point tenderness. No Meningismus. Chest/axilla: Normal chest wall appearance and motion. Nontender with no deformity. No lesions are appreciated. Cardiovascular: Regular rate and rhythm with a normal S1 and S2. No gallops, murmurs, or rubs. Normal PMI, no JVD. No pulse deficits. Respiratory: Lungs have equal breath sounds bilaterally, clear to auscultation and percussion. No rales, rhonchi or wheezes noted. No increased work of breathing, no retractions or nasal flaring. Abdomen/GI: Soft, non-tender, with normal bowel sounds. No distension or tympany. No guarding or rebound. No evidence of tenderness throughout. Back: No spinal tenderness. No costovertebral tenderness. Full range of motion. Skin: Warm, dry with normal turgor. Normal color with no rashes, no lesions, and no evidence of cellulitis. MS/ Extremity: Pulses equal, no cyanosis. Neurovascular intact. Full, normal range of motion. Neuro: Awake and alert, GCS 15, oriented to person, place, time, and situation. Cranial nerves II-XII grossly intact. Motor strength 5/5 in all extremities. Sensory grossly intact. Cerebellar exam normal. Normal gait. Psych: Awake, alert, with orientation to person, place and time. Behavior, mood, and affect are within normal limits. snw
[2019-02-09 20:56] VITALS: BP 136/86; TEMP 98.4; O2SAT 100
== END 2019-02-09 20:10 | disposition home or self-care (01) ==
LOC: ER 17:56
DX: L03.114 Cellulitis of left upper limb (principal); I48.91 Unspecified atrial fibrillation; Z95.0 Presence of cardiac pacemaker
CPT/HCPCS: 87070; 87077; 87186; 87205; 93971; 96372; 99284; J3010

== ENCOUNTER 2023-02-06 13:40 | Emergency (ER) | payer OTHER ==
--- OUTSIDE RECORDS SUMMARY | 2023-02-06 13:44 | XMS REPORT | Continuity of Care Document ---
:1950 Author Organization [facility] t Address [address] [place] [address] [place] [id number] Care Team Providers Name Role Phone PCP, PATIENT DOES NOT HAVE A Primary Care Physician Unavaila YAMILET Mckeon Attending Clinician Unavailable YAMILET WU Attending Clinician Unavailable FRITZ STRICKLAND Attending Clinician Unavailable FRITZ STRICKLAND Attending Clinician Unavailable Tessa Umana Attending Clinician TESSA DUKES Attending Clinician Unavailable Leanna Hays MD Attending Clinician Payers Payer Name Policy Type Policy Number Effective Date Expiration Date Jovan VERDE [id number] 2022 00:00:00 Problems Condition Condition Condition Status Onset Resolution Last Treating Co mments Source Name Details Category Date Date Treatment Clinician Date No known No known Disease Unive rs active active ity of problems problems [facility] Allergies, Adverse Reactions, Alerts Allergy Allergy Status Severity Reaction(s) Onset Inactive Treating Comm ents Source Name Type Date Date Clinician NO KNOWN Drug Active Univers ALLERGIE Class ity of [facility] Social History Social Habit Start Date Stop Date Quantity Comments Source Exposure to 2022-02-11 2022-02-21 Not sure [facility] SARS-CoV-2 (event) 00:00:00 19:46:00 Medica l Branch Sex Assigned At [birth year] [facility] 00:00:00 00:00:00 [facility] Smoking Status Start Date Stop Date Source Unknown if ever smoked [facility] Medications Ordered Filled Start Stop Current Ordering Indication Dosage Frequency Signature Comments Components Source Medication Medication Date Date Medication? Clinician (SIG) Name Name lisinopriL 0 Yes 10mg Take 10 mg U nivers 10 mg 6-24 by mouth ity of tablet 19:48: daily. [place] [address] Medical Branch tamsulosin 2021-0 Yes .4mg Take 0.4 Uni vers 0.4 mg 24 6-24 mg by ity of hr capsule 19:48: mouth [place] 13 daily. Medical Branch lisinopriL 2021-0 Yes 10mg Take 10 mg U nivers 10 mg 6-24 by mouth ity of tablet 19:48: daily. [place] [address] Medical Branch tamsulosin 2021-0 Yes .4mg Take 0.4 Uni vers 0.4 mg 24 6-24 mg by ity of hr capsule 19:48: mouth [place] 13 daily. Medical Branch lisinopriL 2021-0 Yes 10mg Take 10 mg U nivers 10 mg 6-24 by mouth ity of tablet 19:48: daily. [place] [address] Medical Branch tamsulosin 2021-0 Yes .4mg Take 0.4 Uni vers 0.4 mg 24 6-24 mg by ity of hr capsule 19:48: mouth [place] 13 daily. Medical Branch benzonatate 2021-0 Yes [id number] 200mg Take 1 Univers 200 mg 6-24 capsule by ity of capsule 00:00: mouth 3 00 (three) Medical times Branch daily as needed for Cough. albuterol 2021-0 Yes [id number] 2{puff} Inhale 2 Univers 90 6-24 Puffs ity of mcg/actuati 00:00: every 6 [place] as on inhaler 00 (six) Medical hours as Branch needed for Wheezing, Shortness of Breath or Bronchospa sm. benzonatate 2021-0 Yes [id number] 200mg Take 1 Univers 200 mg 6-24 capsule by ity of capsule 00:00: mouth 3 [place] 00 (three) Medical times Branch daily as needed for Cough. albuterol 2021-0 Yes [id number] 2{puff} Inhale 2 Univers 90 6-24 Puffs ity of mcg/actuati 00:00: every 6 [place] as on inhaler 00 (six) Medical hours as Branch needed for Wheezing, Shortness of Breath or Bronchospa sm. benzonatate 2021-0 Yes [id number] 200mg Take 1 Univers 200 mg 6-24 capsule by ity of capsule 00:00: mouth 3 [place] 00 (three) Medical times Branch daily as needed for Cough. albuterol Yes [id number] 2{puff} Inhale 2 Univers 90 6-24 Puffs ity of mcg/actuati 00:00: every 6 [place] as on inhaler 00 (six) Medical hours as Branch needed for Wheezing, Shortness of Breath or Bronchospa sm. Vital Signs Vital Name Observation Time Observation Value Comments Source Systolic blood 2022-02-22 00:48:00 167 mm[Hg] Univer sity [facility] Diastolic blood 2022-02-22 00:48:00 86 [facility] 2022-02-22 00:48:00 70 /min [facility] Body temperature 2022-02-22 00:48:00 36.67 Xochitl [facility] Respiratory rate 2022-02-22 00:48:00 18 /min [facility] Body height 2022-02-22 00:48:00 195.6 cm [facility] Body weight 2022-02-22 00:48:00 83.915 kg [facility] BMI 2022-02-22 00:48:00 21.94 kg/m2 [facility] Oxygen saturation in 2022-02-22 00:48:00 100 /min [facility] blood by [facility] Pulse oximetry Branch Procedures Procedure Date / Time Performed Performing Clinician Sourc e XR CHEST 2 VW 2022-02-22 01:08:20 Tessa Dukes [facility] POCT SARS-COV-2 2022-02-22 01:00:00 Tessa Dukes [facility] ANTIGEN (BINAX NOW) Medical Bran ch Encounters Start End Encounter Admission Attending Care Care Encounter Source Date/Time Date/Time Type Type Clinicians Facility Department ID 2022-04-11 2022-04-11 Outpatient YAMILET BIRCH [facility] 10 [id number] Univers 10:30:00 10:30:00 YAMILET WU i [facility] 2022-03-12 2022-03-12 Outpatient FRITZ WALLER [facility] 1 [id number] Univers 13:30:00 13:30:00 FRITZ STRICKLAND [facility] 2022-02-26 2022-02-26 Outpatient R FRITZ STRICKLAND [facility] 1 [id number] Univers 09:00:00 09:00:00 FRITZ STRICKLAND [facility] 2022-02-22 2022-02-22 Telephone [facility] [id number] Univers 00:00:00 00:00:00 [facility] [id number] i ty of [place] [id number] [place] as ZENY?BLEA [id number] [facility] [address] [facility] 2022-02-21 2022-02-21 Hospital [facility] [id number] Univers 20:00:51 23:59:00 Encounter [facility] [id number] ity of [place] [id number] [place] as ZENY?BLEA [id number] [facility] [address] [facility] 2022-02-21 2022-02-21 [facility] [id number] Univers 19:20:00 20:22:32 TESSA ity [facility] 2022-02-21 2022-02-21 Nurse Roseline [facility] [id number] Univers 19:20:00 20:22:32 Visit Saúl [facility] [id number] ity of [place] [id number] [place] as ZENY?BLEA [id number] [facility] [address] [facility] 2022-02-21 2022-02-21 [facility] [id number] Univers 20:00:51 [facility]00[facility] Results Test Description Test Time Test Comments Results Result Comments Source POCT SARS-COV-2 ANTIGEN (BINAX NOW) 2022-02-22 01:00:00 Test Item Value Reference Range Interpretation Comme nts POCT SARS-COV-2 ANTIGEN (test code Positive Not Detected A = 5076) On board controls acceptable with Yes C Line (test code = 3574) CLEMENCIA (test code = CLEMENCIA) accurate development and interpretation of all internal controls Lab Interpretation (test code = Abnormal 98917-7) [facility]
--- NOTE | 2023-02-06 14:44 | RAD REPORT ---
EXAM DESCRIPTION: USExtkareen Venous Uni Ltd02/06/2023 2:32 pm CLINICAL HISTORY: Right leg pain and swelling. COMPARISON: None. FINDINGS: Right common femoral, superficial femoral, greater saphenous, popliteal and right posterio r tibial veins are compressible and demonstrate augmentation. Doppler demonstrates good flow. Grayscale, color and spectral analysis performed on all vessels IMPRESSION: No evidence of deep venous thrombosis involving the right lower extremity.
--- NOTE | 2023-02-06 15:30 | ER ---
Nurse's Notes [facility] Name: Diego Ortega Age: 72 yrs Sex: Male : 1950 Arrival Date: 02/06/2023 Time: 13:40 Bed IW1 Private MD: Diagnosis: Pain in right lower leg;Swelling Right lower leg;Right lower leg cellulitis Presentation: 02/06 13:55 Chief complaint: Patient states: Pain to right leg for 6 days - clinic sent to ER for ld1 possible blood clot. Coronavirus screen: At this time, the client does not indicate any symptoms associated with coronavirus-19. Ebola Screen: No symptoms or risks identified at this time. Initial Sepsis Screen: Does the patient meet any 2 criteria? No. Patient's initial sepsis screen is negative. Does the patient have a suspected source of infection? No. Patient's initial sepsis screen is negative. Risk Assessment: Do you want to hurt yourself or someone else? Patient reports no desire to harm self or others. Onset of symptoms was February 06, 2023. 13:55 Method Of Arrival: Ambulatory ld1 13:55 Acuity: YAJAIRA 3 ld1 Triage Assessment: 13:53 General: Appears in no apparent distress. comfortable, Behavior is calm, cooperative, ld1 appropriate for age. Pain: Complains of pain in right leg Pain does not radiate. Pain at worst was 8 out of 10 on a pain scale. Quality of pain is described as throbbing, Pain began suddenly. EENT: No signs and/or symptoms were reported regarding the EENT system. Neuro: Level of Consciousness is awake, alert, obeys commands, Oriented to person, place, time, situation. Cardiovascular: Capillary refill < 3 seconds Patient's skin is warm and dry. Respiratory: Airway is patent Respiratory effort is even, unlabored. GI: Abdomen is round non-distended. : No signs and/or symptoms were reported regarding the genitourinary system. Derm: No signs and/or symptoms reported regarding the dermatologic system. Musculoskeletal: No signs and/or symptoms reported regarding the musculoskeletal system. Historical: - Allergies: 13:53 No Known Allergies; ld1 - Home Meds: 13:53 aspirin 81 mg Oral capsule 2 times per day [Active]; lisinopril 20 mg Oral tab ld1 [Active]; amlodipine oral [Active]; - PMHx: 13:53 Atrial Fib; Cirrhosis; Hepatitis; Hypertensive disorder; ld1 - PSHx: 13:53 Pacemaker; ld1 - Immunization history:: Adult Immunizations up to date, Client reports receiving the 2nd dose of the Covid vaccine. - Social history:: Smoking status: Patient denies any tobacco usage or history of. Patient/guardian denies using alcohol. Screenin:[address] [facility] ED Fall Risk Assessment (Adult) History of falling in the last 3 months, ld1 including since admission No falls in past 3 months (0 pts). Abuse screen: Denies threats or abuse. Denies injuries from another. Nutritional screening: No deficits noted. Tuberculosis screening: No symptoms or risk factors identified. Vital Signs: 13:55 BP 150 / 79; Pulse 73; Resp 18; Temp 98.2(O); Pulse Ox 97% on R/A; Weight 83.91 kg; ld1 Height 6 ft. 5 in. ; Pain 8/10; 13:55 Body Mass Index 21.94 (83.91 kg, 195.58 cm) ld1 13:55 Pain Scale: Adult ld1 ED Course: 13:46 Patient arrived in ED. am2 13:53 Arm band placed on right wrist. ld1 13:56 Triage completed. ld1 13:58 Enrrique Lancaster DO is Attending Physician. ms3 14:33 US Extremity Venous Unilateral Ltd In Process Unspecified. EDMS 15:43 Patient has correct armband on for positive identification. Placed in gown. Bed in low ld1 position. Call light in reach. Side rails up X2. Pulse ox on. NIBP on. Door closed. Noise minimized. Warm blanket given. 15:43 No provider procedures requiring assistance completed. Patient did not have IV access ld1 during this emergency room visit. Administered Medications: No medications were administered Medication: 15:44 VIS not applicable for this client. ld1 Outcome: 15:30 Discharge ordered by . ms3 15:44 Discharged to home ambulatory. ld1 15:44 Condition: stable 15:44 Discharge instructions given to patient, Instructed on discharge instructions, follow up and referral plans. medication usage, Demonstrated understanding of instructions, follow-up care, medications, Prescriptions given X 1. 15:44 Patient left the ED. ld1 Signatures: Dispatcher [employer] Leanna Clifford am2 LancasterEnrrique, DO ALEXIS ms3 Darleen Lancaster, RN RN ld1
--- NOTE | 2023-02-06 15:30 | EDPHYS ---
Physician Documentation [facility] Name: Diego Ortega Age: 72 yrs Sex: Male : 1950 Arrival Date: 02/06/2023 Time: 13:40 Bed IW1 Private MD: ED Physician Enrrique Lancaster HPI: 02/06 14:14 This 72 yrs old Male presents to ER via Ambulatory with complaints of Leg Swelling, Leg ms3 Pain. 14:14 72-year-old male with past medical history of atrial fibrillation, cirrhosis, ms3 hepatitis, hypertension presents from the NH clinic for right leg swelling that has been ongoing for 6 days. Patient states the pain is an 8/10 and described as throbbing. Patient states pain becomes worse when walking. Patient denies alleviating factors. Patient denies shortness of breath, chest pain. Historical: - Allergies: 13:53 No Known Allergies; ld1 - Home Meds: 13:53 aspirin 81 mg Oral capsule 2 times per day [Active]; lisinopril 20 mg Oral tab ld1 [Active]; amlodipine oral [Active]; - PMHx: 13:53 Atrial Fib; Cirrhosis; Hepatitis; Hypertensive disorder; ld1 - PSHx: 13:53 Pacemaker; ld1 - Immunization history:: Adult Immunizations up to date, Client reports receiving the 2nd dose of the Covid vaccine. - Social history:: Smoking status: Patient denies any tobacco usage or history of. Patient/guardian denies using alcohol. ROS: 14:14 Constitutional: Negative for fever, and chills. Neck: Negative for injury, pain, and ms3 swelling, Cardiovascular: Negative for chest pain, and palpitations. Respiratory: Negative for shortness of breath, cough, wheezing, and pleuritic chest pain, Abdomen/GI: Negative for abdominal pain, nausea, vomiting, diarrhea, and constipation. 21:04 Skin: Negative for injury, rash, and discoloration. ms3 21:04 MS/extremity: Positive for leg swelling and pain. 21:04 All other systems are negative. Exam: 21:04 Constitutional: This is a well developed, well nourished patient who is awake, alert, ms3 and in no acute distress. Head/Face: Normocephalic, atraumatic. Neck: Trachea midline, no cervical lymphadenopathy. Supple, full range of motion without nuchal rigidity, or vertebral point tenderness. No Meningismus. Chest/axilla: Normal chest wall appearance and motion. Nontender with no deformity. Cardiovascular: Regular rate and rhythm with a normal S1 and S2. No gallops, murmurs, or rubs. Normal PMI, no JVD. No pulse deficits. Respiratory: Lungs have equal breath sounds bilaterally, clear to auscultation and percussion. No rales, rhonchi or wheezes noted. No increased work of breathing, no retractions or nasal flaring. Abdomen/GI: Soft, non-tender, with normal bowel sounds. No distension or tympany. No guarding or rebound. No evidence of tenderness throughout. 21:04 Musculoskeletal/extremity: DVT Exam: pain, of the right leg, swelling, of the right leg, tenderness, of the right leg, erythema, of the right leg. Vital Signs: 13:55 BP 150 / 79; Pulse 73; Resp 18; Temp 98.2(O); Pulse Ox 97% on R/A; Weight 83.91 kg; ld1 Height 6 ft. 5 in. ; Pain 8/10; 13:55 Body Mass Index 21.94 (83.91 kg, 195.58 cm) ld1 13:55 Pain Scale: Adult ld1 MDM: 14:07 Patient medically screened. ms3 21:04 Differential diagnosis: DVT vs Cellulitis vs Venous insufficiency. Data reviewed: vital ms3 signs, nurses notes, radiologic studies, ultrasound, and as a result, I will discharge patient. Care significantly affected by the following chronic conditions: Hypertension, Liver Disease, Atrial Fibrillation. Counseling: I had a detailed discussion with the patient and/or guardian regarding: the historical points, exam findings, and any diagnostic results supporting the discharge/admit diagnosis, radiology results, the need for outpatient follow up, to return to the emergency department if symptoms worsen or persist or if there are any questions or concerns that arise at home. Special discussion: I discussed with the patient/guardian in detail that at this point there is no indication for admission to the hospital. It is understood, however, that if the symptoms persist or worsen the patient needs to return immediately for re-evaluation. 02/06 14:07 Order name: Extremity Venous Unilateral Ltd; Complete Time: 14:51 ms3 Administered Medications: No medications were administered Disposition Summary: 02/06/23 15:30 Discharge Ordered Location: Home ms3 Condition: Stable ms3 Diagnosis - Pain in right lower leg ms3 - Swelling Right lower leg ms3 - Right lower leg cellulitis ms3 Discharge Instructions: - Discharge Summary Sheet ms3 - Musculoskeletal Pain ms3 - Cellulitis, Adult, [id number] ms3 Forms: - Medication Reconciliation Form ms3 - Thank You Letter ms3 - Antibiotic Education ms3 - Prescription Opioid Use ms3 Prescriptions: - Doxycycline Hyclate 100 mg Oral Tablet - take 1 tablet by ORAL route every 12 hours; 20 tablet; Refills: 0, Product ms3 Selection Permitted Signatures: Dispatcher [employer] EDMS Enrrique Lancaster, DO DO ms3 Darleen Lancaster RN RN ld1 Corrections: (The following items were deleted from the chart) 21:04 14:14 Constitutional: Negative for fever, and chills. ms3 ms3
[2023-02-06 16:04] VITALS: BP 150/79; TEMP 98.2; O2SAT 97
== END 2023-02-06 15:44 | disposition home or self-care (01) ==
LOC: ER 13:40
DX: L03.115 Cellulitis of right lower limb (principal); R22.41 Localized swelling, mass and lump, right lower limb; I10 Essential (primary) hypertension; I48.91 Unspecified atrial fibrillation; Z79.82 Long term (current) use of aspirin; Z95.0 Presence of cardiac pacemaker
CPT/HCPCS: 93971; 99283

== ENCOUNTER 2024-07-01 14:24 | Emergency (ER) | payer OTHER ==
--- NOTE | 2024-07-01 15:26 | ER ---
Nurse's Notes [facility] Name: Diego Ortega Age: 74 yrs Sex: Male : 1950 Arrival Date: 07/01/2024 Time: 14:24 Bed Waiting Private MD: Diagnosis: ED Course: 07/01 14:28 Patient arrived in ED. mg5 14:30 Baldo Sotelo MD is Attending Physician. ec2 14:44 Patient's name was called from ER lobby. No response. aa5 15:00 Patient's name was called from ER lobby. No response. aa5 15:20 Patient's name was called from ER lobby. No response. aa5 Administered Medications: No medications were administered Outcome: 15:25 Patient left the ED. aa5 Signatures: Roselyn Blair RN RN aa5 Renee Waite mg5 Baldo Sotelo MD MD ec2
== END 2024-07-01 15:25 | disposition left against medical advice (07) ==
LOC: ER 14:24
DX: Z02.9 Encounter for administrative examinations, unspecified (principal)